=== PATIENT | male | born 1960 | race Caucasian/White ===

== ENCOUNTER → 2022-01-11 | Outpatient (CLI) | payer OTHER ==
[~2022-01-11] MED LIST: CLOBETASOL PRO118 ML TOP; Hydrocortiso453.6 G3 TOP; Norco 5-325 Ta1 EACH PO; TEMOVATE15 G1 TOP
== END | disposition home or self-care (01) ==
LOC: PLD 12:03 → LAB SHORT 12:03
DX: L30.8 Other specified dermatitis (principal)
CPT/HCPCS: 88305; 88312